=== PATIENT | male | born 1930 | race Caucasian/White ===

== ENCOUNTER 2018-08-28 11:54 | Emergency (ER) | payer MEDICARE ==
[2018-08-28] MEDS ORDERED: ONDANSETRON HCL 4 MG/2 ML VIAL ONE (13:11)
[2018-08-28] MEDS ORDERED: MORPHINE SULFATE 4 MG/1ML SYG ONE (13:11)
[2018-08-28 13:12] LABS: APPEARANCE,URINE Cloudy (CLEAR); BASOPHILS % (AUTO) 0.8 % (0.0-5.0); BILIRUBIN,URINE Negative (NEGATIVE); COLOR,URINE Red (YELLOW); EOSINOPHILS % (AUTO) 3.5 % (0.0-8.0); GLUCOSE, URINE (UA) Negative (NEGATIVE); HEMATOCRIT 38.4 % (42-54); KETONES,URINE Negative (NEGATIVE); LEUKOCYTE ESTERASE ,URINE Small (NEGATIVE); LYMPHOCYTES % (AUTO) 27.6 % (21.0-51.0); MEAN CORPUSCULAR HEMOGLOBIN 32.7 pg (27.0-33.0); MEAN CORPUSCULAR HGB CONC 34.4 g/dL (32.0-36.0); MEAN CORPUSCULAR VOLUME 94.8 fL (79-99); MONOCYTES % (AUTO) 7.9 % (3.0-13.0); NEUTROPHILS % (AUTO) 60.2 % (40.0-77.0); NITRATE,URINE Negative (NEGATIVE); NUCLEATED RED BLOOD CELLS 0.1 % (0.0-0.19); OCCULT BLOOD,URINE Large (NEGATIVE); PLATELET COUNT (AUTO) 196 K/uL (130-400); PROTEIN,URINE POS 2+ (NEGATIVE); RED BLOOD CELL COUNT(AUTO) 4.05 MIL/uL (4.50-6.20); RED CELL DISTRIBUTION WIDTH 13.2 % (11.0-15.5); UROBILINOGEN,URINE 0.2 mg/dL (0.2-1.0); WHITE BLOOD COUNT (AUTO) 4.6 K/uL (4.8-10.8)
[2018-08-28 13:22] LABS: POTASSIUM 3.9 mmol/L (3.5-5.1)
[2018-08-28 13:28] LABS: ALBUMIN 3.7 g/dL (3.5-5.0); BILIRUBIN,TOTAL 0.8 mg/dL (0.2-1.0)
[2018-08-28 13:29] LABS: BACTERIA,URINE Rare /HPF (None Seen); RBC,URINE 51-100 /HPF (0-1); SQUAMOUS EPITHELIAL CELL,UR 0-2 /HPF (0-2)
[2018-08-28] MEDS ORDERED: CEFTRIAXONE SODIUM 1 GM ONE (15:22)
[2018-08-28] MEDS ORDERED: SODIUM CHLORIDE 0.9% 500ML 500 ML IV ONE (15:23)
== END 2018-08-28 16:20 | disposition home or self-care (01) ==
LOC: EDH 11:54
DX: R31.9 Hematuria, unspecified (principal); I10 Essential (primary) hypertension; E07.9 Disorder of thyroid, unspecified; Z87.442 Personal history of urinary calculi; Z90.49 Acquired absence of other specified parts of digestive tract; Z88.8 Allergy status to other drugs, medicaments and biological substances
CPT/HCPCS: 36415; 74176; 80053; 81001; 85025; 87088; 96374; 96375; 99284; J0696; J2270; J2405; J7040